=== PATIENT | male | born 1985 | race American Indian/Alaskan Native ===

== ENCOUNTER 2021-09-02 21:53 | Emergency (ER) | payer SELFPAY ==
[2021-09-03] MEDS ORDERED: KETOROLAC 60 MG/2 ML INJ IM ONE (01:01)
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
--- NOTE | 2021-09-03 01:21 | XRay Report ---
LEFT SHOULDER 3 VIEWS INDICATION / CLINICAL INFORMATION: shoulder pain, deformity after wrestling COMPARISON: None available. FINDINGS: BONES / JOINT(S): There is a mildly displaced distal left clavicle fracture. Dislocation. No addition al fractures. No significant arthritis. SOFT TISSUES: No significant abnormality. ADDITIONAL FINDINGS: None. Signer Name: Salomon Barbosa MD Signed: 09/03/2021 1:17 AM Workstation Name: [id number][id number]
[2021-09-03 02:18] VITALS: BP 118/83
== END 2021-09-03 02:18 | disposition home or self-care (01) ==
LOC: ED 21:53
DX: S42.002A Fracture of unspecified part of left clavicle, initial encounter for closed fracture (principal); Z98.890 Other specified postprocedural states; W18.39XA Other fall on same level, initial encounter; Y93.89 Activity, other specified; Y92.89 Other specified places as the place of occurrence of the external cause; Y99.8 Other external cause status
CPT/HCPCS: 73030; 96372; 99283; J1885